=== PATIENT | male | born 1940 | race Caucasian/White ===

== ENCOUNTER 2024-12-21 06:26 | Day surgery (SDC) | payer MEDICARE ==
[2024-12-21] VITALS (11 sets, daily range): BP systolic 110–162; BP diastolic 59–89; PULSE 56–70; RESP 15–18; TEMP 97.2–97.7
[~2024-12-21] VITALS: Ht 180.3 cm; Wt 83.9 kg
[2024-12-21] MEDS ORDERED: LISI5TAB21 PO (07:16)
[2024-12-21] MEDS ORDERED: CLOP-31 PO (07:16)
[2024-12-21] MEDS ORDERED: ZOLPIDEM PO (07:16)
[2024-12-21] MEDS ORDERED: METO-408 PO (07:16)
[2024-12-21] MEDS ORDERED: MECLIZINE 25 MG PO (07:16)
[2024-12-21] MEDS ORDERED: CHOL500051 PO (07:16)
[2024-12-21] MEDS ORDERED: DUTA.5 PO (07:16)
[2024-12-21] MEDS ORDERED: OMEP40CA21 PO (07:16)
[2024-12-21] MEDS ORDERED: APIX5TAB PO (07:16)
[2024-12-21] MEDS ORDERED: TRAMADOL 50MG PO (07:16)
[2024-12-21] MEDS ORDERED: TAMS-55 PO (07:16)
[2024-12-21] MEDS: 0.9%NACL 1000ML 1,000 ML IV ONE (07:33)
== END 2024-12-21 10:02 | disposition home or self-care (01) ==
LOC: ENDO 06:26 → DAH 06:26 → ENDO 10:02
PROVIDERS: ATTEND Internal Medicine Gastroenterology
DX: D62 Acute posthemorrhagic anemia (principal); K63.5 Polyp of colon; K21.00 Gastro-esophageal reflux disease with esophagitis, without bleeding; K44.9 Diaphragmatic hernia without obstruction or gangrene; K57.30 Diverticulosis of large intestine without perforation or abscess without bleeding; I10 Essential (primary) hypertension; I25.10 Atherosclerotic heart disease of native coronary artery without angina pectoris; Z88.1 Allergy status to other antibiotic agents; Z79.01 Long term (current) use of anticoagulants; Z79.899 Other long term (current) drug therapy
CPT/HCPCS: 45380; 43239; J7030; J2704 ×2; A4620; A4215; J3490